=== PATIENT | male | born 1985 | race Caucasian/White ===

== ENCOUNTER 2019-04-12 17:38 | Emergency (ER) | payer OTHER ==
[~2019-04-12] VITALS: Ht 177.8 cm; Wt 81.7 kg
[~2019-04-12 17:38] MED LIST: BACL10 PO; Bactrim Ds Tab1 EACH PO; CEPH500 PO; CYCL10 PO; Cleocin HCl150 MG PO; DIPATR PO; HYDACE10B; HYDACE5 PO; IBUP600 PO; NAPR500 PO; Norco 10-325 T1 EACH PO; RXCYCL10 PO; SULTRIDS PO; VENL75ER; Zofran Odt4 MG SL
== END 2019-04-12 21:35 | disposition home or self-care (01) ==
LOC: ER 17:38
DX: S51.812A Laceration without foreign body of left forearm, initial encounter (principal); M41.9 Scoliosis, unspecified; Z91.030 Bee allergy status; F17.210 Nicotine dependence, cigarettes, uncomplicated; W22.8XXA Striking against or struck by other objects, initial encounter
CPT/HCPCS: 12004; 73080; 73090; 99283-25